=== PATIENT | male | born 1995 | race Caucasian/White ===

== ENCOUNTER 2016-09-21 20:52 | Inpatient (IN) | payer MEDICAID, OTHER ==
[~2016-09-21] VITALS: Ht 188 cm; Wt 134.0 kg
[~2016-09-21 20:52] MED LIST: CALC-179 PO; DIPHTH/TETANUS/ACEL PERTUSSIS (BOOSTER) 0.5 ML VIAL/PFS IM ONE; LACTATED RINGER'S 1000 ML INJ 3,000 ML IV ONE; ONDANSETRON HCL 4 MG/2 ML VIAL IV PUSH ONE; PROPOFOL 200 MG/20 ML AMP IV ONE; ceFAZolin 2 GM PREMIX 50 ML ONE
[2016-09-21] MEDS ORDERED: MORPHINE SULFATE 8 MG/ML INJ ONE (20:56)
[2016-09-21] MEDS ORDERED: ONDANSETRON HCL 4 MG/2 ML VIAL ONE (20:57)
[2016-09-21] MEDS ORDERED: HEPARIN SODIUM - SQ 10,000 UNITS/ML VIAL ONE (21:08)
[2016-09-21] MEDS ORDERED: BUPIVACAINE/EPINEPHRINE 0.5% 50 ML VIAL ONE (21:10)
[2016-09-21] MEDS ORDERED: THROMBIN (TOPICAL) 5,000 UNIT VIAL ONE (21:10)
[2016-09-21] MEDS ORDERED: GELFOAM SIZE 100 ONE (21:11)
[2016-09-21] MEDS ORDERED: ceFAZolin INJ 1,000 MG VIAL ONE (21:11)
[2016-09-21 21:21] LABS: AUTOMATED NEUTROPHIL # 4.5 TH/MM3 (1.8-7.7); BASOPHIL # 0.1 TH/MM3 (0-0.2); BASOPHIL % 0.7 % (0.0-2.0); EOSINOPHIL # 0.3 TH/MM3 (0-0.4); EOSINOPHIL % 3.7 % (0.0-4.0); HEMATOCRIT 43.6 % (39.0-51.0); HEMO FLAGS DIFF FINAL; LYMPHOCYTE # 3.6 TH/MM3 (1.0-4.8); MEAN CELL VOLUME 79.8 FL (80.0-100.0); MEAN CORPUSCULAR HEMOGLOBIN 26.7 PG (27.0-34.0); MEAN CORPUSCULAR HGB CONC 33.4 % (32.0-36.0); MONO % 7.8 % (0.0-8.0); NEUT % 48.8 % (16.0-70.0); PLATELET COUNT 175 TH/MM3 (150-450); RED BLOOD COUNT 5.46 MIL/MM3 (4.50-5.90); RED CELL DISTRIBUTION WIDTH 13.5 % (11.6-17.2); WHITE BLOOD COUNT 9.3 TH/MM3 (4.0-11.0)
[2016-09-21 21:24] LABS: I-STAT POTASSIUM 2.9 MMOL/L (3.5-4.9)
[2016-09-21 21:32] LABS: APTT (PATIENT) 21.2 SEC (24.3-30.1); PROTHROMBIN TIME - PATIENT 10.9 SEC (9.8-11.6)
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
[2016-09-21] MEDS ORDERED: SUGAMMADEX SODIUM 200 MG/2 ML VIAL IV PUSH ONE ×2 (22:21)
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
[2016-09-22] VITALS (12 sets, daily range): BP systolic 131–166; BP diastolic 72–96; PULSE 80–96; RESP 13–26; TEMP 97.6–99; O2SAT 95–99
[2016-09-22] MEDS ORDERED: MORPHINE SULFATE 4 MG/ML INJ ONE (00:44)
[2016-09-22] MEDS ORDERED: fentaNYL CITRATE 250 MCG/5 ML AMP ONE (00:45)
[2016-09-22] MEDS: SODIUM CHLOR 0.9% 1000 ML INJ 1,000 ML IV SCH ×4 (00:48→20:48)
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
[2016-09-22] MEDS ORDERED: ENALAPRILAT 1.25 MG/ML VIAL IV PRN (01:00)
[2016-09-22] MEDS: PCA - TOTAL MG DILAUDID DELIVERED PER SHIFT OTHER SCH ×4 (01:00→22:00)
[2016-09-22] MEDS ORDERED: MISCELLANEOUS NURSING INFORMATION XX SCH (01:00)
[2016-09-22] MEDS ORDERED: ACETAMINOPHEN/HYDROcodone 325 MG/5 MG TAB PO PRN ×2 (01:00)
[2016-09-22] MEDS ORDERED: SODIUM CHLORIDE 0.9% FLUSH 5 ML FLUSH IVF PRN (01:00)
[2016-09-22] MEDS ORDERED: DO NOT ADM ANY ANTICOAGULANT DRUGS XX PRN (01:00)
[2016-09-22] MEDS ORDERED: DOCUSATE SODIUM 100 MG CAP PO SCH ×2 (01:00→09:00)
[2016-09-22] MEDS ORDERED: NALOXONE HCL 0.4 MG/ML AMP IV PRN (01:00)
[2016-09-22] MEDS: PANTOPRAZOLE SODIUM 40 MG VIAL IVP SCH (01:00)
[2016-09-22] MEDS ORDERED: CHLORHEXIDINE GLUCONATE 2 % 1 PACK (2 CLOTHS) TOP PRN (01:00)
[2016-09-22] MEDS ORDERED: *morphine SULFATE 8 MG/ML PERIprocedure ONLY ONE ×2 (01:03→01:28)
[2016-09-22] MEDS: metroNIDAZOLE 500 MG INJ 100 ML IV SCH ×3 (01:30→17:30)
[2016-09-22] MEDS: CIPROFLOXACIN 400 MG PREMIX 200 ML IV SCH ×2 (02:00→15:13)
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
[2016-09-22] MEDS: HYDROmorphone HCL PCA 6 MG/30 ML IV SCH ×3 (03:13→20:01)
[2016-09-22] MEDS: CHLORHEXIDINE GLUCONATE 2 % 1 PACK (2 CLOTHS) TOP SCH (04:00)
[2016-09-22 05:07] LABS: HEMATOCRIT 42.2 % (39.0-51.0); MEAN CELL VOLUME 79.4 FL (80.0-100.0); MEAN CORPUSCULAR HEMOGLOBIN 26.5 PG (27.0-34.0); MEAN CORPUSCULAR HGB CONC 33.3 % (32.0-36.0); PLATELET COUNT 147 TH/MM3 (150-450); RED BLOOD COUNT 5.32 MIL/MM3 (4.50-5.90); RED CELL DISTRIBUTION WIDTH 13.5 % (11.6-17.2); REVIEW FLAG FINAL
[2016-09-22 05:24] LABS: BICARBONATE 23.1 MEQ/L (21.0-32.0); POTASSIUM 3.9 MEQ/L (3.5-5.1)
[2016-09-22] MEDS ORDERED: MAGNESIUM OXIDE 400 MG TAB PO PRN (05:30)
[2016-09-22] MEDS ORDERED: POTASSIUM PHOSPHATE INJ 30 MMOL in SODIUM CHLOR 0.9% 250 ML INJ 250 ML IV PRN (05:30)
[2016-09-22] MEDS ORDERED: POTASSIUM CHLOR 20 MEQ PREMIX 100 ML IV PRN ×2 (05:30)
[2016-09-22] MEDS ORDERED: POTASSIUM PHOSPHATE MONOBASIC 500 MG TAB PO/TUBE PRN (05:30)
[2016-09-22] MEDS ORDERED: POTASSIUM CL 40 MEQ/30 ML LIQ UDC PO/TUBE PRN ×2 (05:30)
[2016-09-22] MEDS ORDERED: POTASSIUM CHLOR 40 MEQ PREMIX 100 ML IV PRN ×2 (05:30)
[2016-09-22] MEDS ORDERED: MAGNESIUM SULFATE INJ 4 GM in SODIUM CHLORIDE 0.9% INJ 92 ML IV PRN (05:30)
[2016-09-22] MEDS ORDERED: SODIUM PHOSPHATE INJ 30 MMOL in SODIUM CHLOR 0.9% 250 ML INJ 240 ML IV PRN (05:30)
[2016-09-22] MEDS ORDERED: MAGNESIUM SULFATE INJ 2 GM in SODIUM CHLORIDE 0.9% INJ 96 ML IV PRN (05:30)
[2016-09-22] MEDS ORDERED: POTASSIUM PHOSPHATE MONOBASIC 500 MG TAB PO PRN (05:30)
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
[2016-09-22] MEDS ORDERED: LACTULOSE SYRUP 20 GM/30 ML CUP PO PRN (08:45)
[2016-09-22] MEDS: DOCUSATE SODIUM 50 MG/SENNA 8.6 MG TAB PO SCH (09:00)
[2016-09-22] MEDS: HYDROmorphone HCL PF 1 MG/ML VIAL IVP PRN (23:25)
[2016-09-23] VITALS (10 sets, daily range): BP systolic 120–141; BP diastolic 60–83; PULSE 83–116; RESP 16–27; TEMP 98–99.6; O2SAT 3–97
[2016-09-23] MEDS: PANTOPRAZOLE SODIUM 40 MG VIAL IVP SCH (00:48)
[2016-09-23] MEDS: CIPROFLOXACIN 400 MG PREMIX 200 ML IV SCH (01:06)
[2016-09-23] MEDS: CHLORHEXIDINE GLUCONATE 2 % 1 PACK (2 CLOTHS) TOP SCH (04:00)
[2016-09-23 05:03] LABS: BASOPHIL % 0.2 % (0.0-2.0); EOSINOPHIL % 0.2 % (0.0-4.0); HEMATOCRIT 41.5 % (39.0-51.0); HEMO FLAGS DIFF FINAL; LYMPH % 8.2 % (9.0-44.0); LYMPHOCYTE # 0.8 TH/MM3 (1.0-4.8); MEAN CELL VOLUME 78.9 FL (80.0-100.0); MEAN CORPUSCULAR HGB CONC 34.2 % (32.0-36.0); MONO % 12.4 % (0.0-8.0); PLATELET COUNT 138 TH/MM3 (150-450); PROTHROMBIN TIME - PATIENT 11.4 SEC (9.8-11.6); RED BLOOD COUNT 5.25 MIL/MM3 (4.50-5.90); RED CELL DISTRIBUTION WIDTH 13.6 % (11.6-17.2); WHITE BLOOD COUNT 10.2 TH/MM3 (4.0-11.0)
[2016-09-23 05:04] LABS: BICARBONATE 27.4 MEQ/L (21.0-32.0); POTASSIUM 3.7 MEQ/L (3.5-5.1)
[2016-09-23] MEDS ORDERED: GLUCAGON 1 MG/ML VIAL OTHER PRN (09:00)
[2016-09-23] MEDS ORDERED: DEXTROSE 50% IN WATER 50 ML VIAL(D50) IV PUSH PRN (09:00)
[2016-09-23] MEDS: HYDROmorphone HCL PF 1 MG/ML VIAL IVP PRN ×2 (09:05→23:40)
[2016-09-23] MEDS: SODIUM CHLOR 0.9% 1000 ML INJ 1,000 ML IV SCH ×3 (10:03→23:39)
[2016-09-23] MEDS: PCA - TOTAL MG DILAUDID DELIVERED PER SHIFT OTHER SCH ×2 (14:00→21:39)
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
[2016-09-23 16:06] LABS: HEMOGLOBIN A1b 1.5 %; HEMOGLOBIN Ao 86.3 %; HEMOGLOBIN P3 3.6 %
[2016-09-23] MEDS: HYDROmorphone HCL PCA 6 MG/30 ML IV SCH (16:41)
[2016-09-23] MEDS: DOCUSATE SODIUM 50 MG/SENNA 8.6 MG TAB PO SCH (21:39)
[2016-09-24] VITALS: BP 145/78; PULSE 114; RESP 22; TEMP 99.7; O2SAT 94
[2016-09-24] MEDS: HYDROmorphone HCL PF 1 MG/ML VIAL IVP PRN ×2 (03:15→20:44)
[2016-09-24] MEDS: HYDROmorphone HCL PCA 6 MG/30 ML IV SCH (03:27)
[2016-09-24] MEDS: PCA - TOTAL MG DILAUDID DELIVERED PER SHIFT OTHER SCH ×2 (03:29→06:17)
[2016-09-24 04:00] VITALS: BP 141/88; PULSE 107; RESP 20; TEMP 99; O2SAT 94
[2016-09-24 04:39] LABS: HEMATOCRIT 38.1 % (39.0-51.0); MEAN CELL VOLUME 79.3 FL (80.0-100.0); MEAN CORPUSCULAR HEMOGLOBIN 27.3 PG (27.0-34.0); MEAN CORPUSCULAR HGB CONC 34.5 % (32.0-36.0); PLATELET COUNT 135 TH/MM3 (150-450); RED BLOOD COUNT 4.81 MIL/MM3 (4.50-5.90); RED CELL DISTRIBUTION WIDTH 13.4 % (11.6-17.2); REVIEW FLAG FINAL; WHITE BLOOD COUNT 8.5 TH/MM3 (4.0-11.0)
[2016-09-24 05:11] LABS: BICARBONATE 24.7 MEQ/L (21.0-32.0); POTASSIUM 3.6 MEQ/L (3.5-5.1)
[2016-09-24] MEDS: SODIUM CHLOR 0.9% 1000 ML INJ 1,000 ML IV SCH (06:17)
[2016-09-24 08:00] VITALS: BP 136/79; PULSE 111; RESP 19; TEMP 98.8; O2SAT 93
[2016-09-24] MEDS: DOCUSATE SODIUM 50 MG/SENNA 8.6 MG TAB PO SCH ×2 (08:58→20:10)
[2016-09-24] MEDS ORDERED: oxyCODONE/ACETAMINOPHEN 5 MG/325 MG TAB PO PRN (11:00)
[2016-09-24 12:00] VITALS: BP 160/93; PULSE 108; RESP 18; TEMP 98.7; O2SAT 94
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
[2016-09-24] MEDS: ENOXAPARIN SODIUM 30 MG/0.3 ML SYRINGE SQ SCH (12:39)
[2016-09-24] MEDS: oxyCODONE/ACETAMINOPHEN 5 MG/325 MG TAB PO PRN ×3 (12:39→22:26)
[2016-09-24] MEDS: ONDANSETRON HCL 4 MG/2 ML VIAL IV PRN ×2 (13:47→20:44)
[2016-09-24 16:00] VITALS: BP 137/84; PULSE 111; RESP 19; TEMP 98.5; O2SAT 95
[2016-09-24] MEDS ORDERED: CALCIUM CARBONATE 500 MG CHEWABLE TAB PO PRN (18:00)
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
[2016-09-24 20:00] VITALS: BP 154/83; PULSE 100; RESP 18; TEMP 98.6; O2SAT 95
[2016-09-24] MEDS: MAGNESIUM HYDROXIDE SUSP 30 ML CUP PO SCH (20:10)
[2016-09-24] MEDS: FAMOTIDINE 20 MG TAB PO SCH (20:10)
[2016-09-25] VITALS: BP 148/84; PULSE 106; RESP 20; TEMP 98.6; O2SAT 95
[2016-09-25] MEDS: ENOXAPARIN SODIUM 30 MG/0.3 ML SYRINGE SQ SCH ×3 (01:38→23:48)
[2016-09-25] MEDS: ONDANSETRON HCL 4 MG/2 ML VIAL IV PRN ×2 (02:01→20:56)
[2016-09-25] MEDS ORDERED: BISACODYL EC 5 MG TABEC PO ONE (07:15)
[2016-09-25] MEDS ORDERED: BISACODYL 10 MG SUPP RECTAL ONE (07:15)
[2016-09-25 08:00] VITALS: BP 132/71; PULSE 80; RESP 17; TEMP 98.1; O2SAT 93
[2016-09-25] MEDS: DOCUSATE SODIUM 50 MG/SENNA 8.6 MG TAB PO SCH ×2 (08:39→19:29)
[2016-09-25 12:00] VITALS: BP 133/74; PULSE 98; RESP 19; TEMP 98.7; O2SAT 97
[2016-09-25] MEDS ORDERED: RESP: ALBUTEROL 2.5 MG/IPRATROPIUM 0.5 MG NEB (SCH) NEB ONE (12:15)
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
[2016-09-25 16:00] VITALS: BP 131/73; PULSE 102; RESP 18; TEMP 98.8; O2SAT 3
[2016-09-25] MEDS ORDERED: SENN1TAB PO (18:10)
[2016-09-25] MEDS ORDERED: MILKSUS PO (18:10)
[2016-09-25] MEDS: MAGNESIUM HYDROXIDE SUSP 30 ML CUP PO SCH (19:29)
[2016-09-25] MEDS: FAMOTIDINE 20 MG TAB PO SCH (19:29)
[2016-09-25 20:16] VITALS: BP 130/68; PULSE 92; RESP 18; TEMP 98.1; O2SAT 98
[2016-09-26 00:19] VITALS: BP 129/70; PULSE 94; RESP 18; TEMP 98.9; O2SAT 98
[2016-09-26] MEDS: oxyCODONE/ACETAMINOPHEN 5 MG/325 MG TAB PO PRN ×2 (01:29→11:47)
[2016-09-26 06:09] LABS: HEMATOCRIT 41.4 % (39.0-51.0); MEAN CELL VOLUME 78.6 FL (80.0-100.0); MEAN CORPUSCULAR HEMOGLOBIN 26.5 PG (27.0-34.0); MEAN CORPUSCULAR HGB CONC 33.7 % (32.0-36.0); PLATELET COUNT 186 TH/MM3 (150-450); RED BLOOD COUNT 5.27 MIL/MM3 (4.50-5.90); RED CELL DISTRIBUTION WIDTH 13.7 % (11.6-17.2); REVIEW FLAG FINAL; WHITE BLOOD COUNT 7.6 TH/MM3 (4.0-11.0)
[2016-09-26 06:25] LABS: BICARBONATE 28.6 MEQ/L (21.0-32.0); MAGNESIUM 2.3 MG/DL (1.5-2.5); POTASSIUM 3.9 MEQ/L (3.5-5.1)
[2016-09-26 08:00] VITALS: BP 128/68; PULSE 94; RESP 16; TEMP 98.2; O2SAT 93
[2016-09-26] MEDS: DOCUSATE SODIUM 50 MG/SENNA 8.6 MG TAB PO SCH (08:18)
[2016-09-26] MEDS: ENOXAPARIN SODIUM 30 MG/0.3 ML SYRINGE SQ SCH (11:47)
[2016-09-26] MEDS ORDERED: PERC5TAB12 PO (11:53)
[2016-09-26 12:00] VITALS: BP 131/62; PULSE 97; RESP 16; TEMP 97.5; O2SAT 95
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
== END 2016-09-26 16:01 | disposition home or self-care (01) | DRG 329 ==
LOC: NEPI 20:52 → MERGE 21:08 → EDBD 21:08 → NEDA 21:08 → HPAC 21:46 → N03B 09-22 02:47 → N07A 09-23 13:58
PROVIDERS: ADMIT Surgery; ATTEND Surgery
PROC: 0WQF0ZZ Repair Abdominal Wall, Open Approach (ICD-10-PCS; 2016-09-21)
PROC: 0DT80ZZ Resection of Small Intestine, Open Approach (ICD-10-PCS; principal; 2016-09-21 21:33)
DX: S36.439A Laceration of unspecified part of small intestine, initial encounter (principal); S31.64 Puncture wound with foreign body of abdominal wall with penetration into peritoneal cavity; S36.520A Contusion of ascending [right] colon, initial encounter; S36.893A Laceration of other intra-abdominal organs, initial encounter; R11.0 Nausea; W32.0XXA Accidental handgun discharge, initial encounter; Z72.0 Tobacco use
CPT/HCPCS: 71010; 72170; 74000; 80048; 82435; 82565; 82947; 82948; 83036; 83735; 84100; 84132; 84295; 84520; 85025; 85027; 85610; 85730; 86850; 86900; 86901; 87641; 88307; 90471; 90715; 94003; 94150; 96374; 96375; 99291; C9113; G0390; J0690; J0744; J1170; J1644; J1650; J2270; J2405; J3010; J7030; J7120

== ENCOUNTER 2016-09-29 16:27 | Emergency (ER) | payer MEDICAID ==
[~2016-09-29] VITALS: Ht 185.4 cm; Wt 140.0 kg
[~2016-09-29 16:27] MED LIST changes: -DIPHTH/TETANUS/ACEL PERTUSSIS (BOOSTER) 0.5 ML VIAL/PFS IM ONE; -LACTATED RINGER'S 1000 ML INJ 3,000 ML IV ONE; +MILKSUS PO; -ONDANSETRON HCL 4 MG/2 ML VIAL IV PUSH ONE; +PERC5TAB12 PO; -PROPOFOL 200 MG/20 ML AMP IV ONE; +SENN1TAB PO; -ceFAZolin 2 GM PREMIX 50 ML ONE
[2016-09-29 16:29] VITALS: BP 129/75; PULSE 128; RESP 14; TEMP 98.4; O2SAT 96
== END 2016-09-29 18:55 | disposition left against medical advice (07) ==
LOC: NED 16:27
DX: R23.8 Other skin changes (principal); Z53.21 Procedure and treatment not carried out due to patient leaving prior to being seen by health care provider
CPT/HCPCS: 99281

== ENCOUNTER 2016-09-30 15:27 | Emergency (ER) | payer MEDICAID, OTHER ==
[~2016-09-30] VITALS: Ht 188 cm; Wt 136.4 kg
[2016-09-30 15:28] VITALS: BP 165/79; PULSE 101; RESP 12; TEMP 99.1; O2SAT 97
[2016-09-30] MEDS ORDERED: SODIUM CHLOR 0.9% 1000 ML INJ 1,000 ML IV SCH (15:56)
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
[2016-09-30 16:34] LABS: AUTOMATED NEUTROPHIL # 3.4 TH/MM3 (1.8-7.7); BASOPHIL % 0.8 % (0.0-2.0); EOSINOPHIL # 0.3 TH/MM3 (0-0.4); EOSINOPHIL % 5.4 % (0.0-4.0); HEMATOCRIT 41.3 % (39.0-51.0); HEMO FLAGS DIFF FINAL; LYMPH % 20.1 % (9.0-44.0); LYMPHOCYTE # 1.2 TH/MM3 (1.0-4.8); MEAN CELL VOLUME 79.1 FL (80.0-100.0); MEAN CORPUSCULAR HEMOGLOBIN 26.2 PG (27.0-34.0); MEAN CORPUSCULAR HGB CONC 33.1 % (32.0-36.0); MONO % 16.8 % (0.0-8.0); NEUT % 56.9 % (16.0-70.0); PLATELET COUNT 195 TH/MM3 (150-450); RED BLOOD COUNT 5.22 MIL/MM3 (4.50-5.90); RED CELL DISTRIBUTION WIDTH 13.4 % (11.6-17.2)
[2016-09-30 17:14] LABS: ANION GAP 10 MEQ/L (5-15); BICARBONATE 27.1 MEQ/L (21.0-32.0); BLOOD UREA NITROGEN 15 MG/DL (7-18); CHLORIDE 101 MEQ/L (98-107); POTASSIUM 4.4 MEQ/L (3.5-5.1); SODIUM (NA) 138 MEQ/L (136-145)
[2016-09-30 17:20] LABS: AST (GOT) 29 U/L (15-37); GLOMERULAR FILTRATION RATE 88 ML/MIN (>89)
[2016-09-30 17:21] LABS: ALKALINE PHOSPHATASE 78 U/L (45-117); ALT (GPT) 74 U/L (12-78); TOTAL BILIRUBIN ADULT 0.3 MG/DL (0.2-1.0)
== END 2016-09-30 17:40 | disposition home or self-care (01) ==
LOC: NETRI 15:27
DX: Z48.815 Encounter for surgical aftercare following surgery on the digestive system (principal); G89.18 Other acute postprocedural pain; J45.909 Unspecified asthma, uncomplicated; K21.9 Gastro-esophageal reflux disease without esophagitis; W34.00XD Accidental discharge from unspecified firearms or gun, subsequent encounter
CPT/HCPCS: 80053; 83605; 85025; 96360; 99284; J7030

== ENCOUNTER 2016-10-08 16:48 | Emergency (ER) | payer MEDICAID ==
[~2016-10-08] VITALS: Ht 188 cm; Wt 130.0 kg
[~2016-10-08 16:48] MED LIST changes: -CALC-179 PO; -MILKSUS PO; -SENN1TAB PO
[2016-10-08 16:52] VITALS: BP 128/91; PULSE 104; RESP 16; TEMP 98.8; O2SAT 99
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
== END 2016-10-08 18:38 | disposition home or self-care (01) ==
LOC: NEPB 16:48
DX: Z48.02 Encounter for removal of sutures (principal)
CPT/HCPCS: 99281

== ENCOUNTER 2017-06-01 11:46 | Emergency (ER) | payer MEDICAID ==
[~2017-06-01] VITALS: Ht 182.9 cm; Wt 135.0 kg
[2017-06-01 11:50] VITALS: BP 141/97; PULSE 85; RESP 14; TEMP 98.2; O2SAT 98
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
== END 2017-06-01 15:30 | disposition home or self-care (01) ==
LOC: NEPK 11:46
DX: S62.336A Displaced fracture of neck of fifth metacarpal bone, right hand, initial encounter for closed fracture (principal); W22.09XA Striking against other stationary object, initial encounter
CPT/HCPCS: 29125; 73130